=== PATIENT | male | born 1985 | race Caucasian/White ===

== ENCOUNTER 2019-06-05 05:09 | Emergency (ER) | payer OTHER ==
[2019-06-05] MEDS ORDERED: SODIUM CHLORIDE 0.9% 1,000 ML IV STA (05:57)
--- NOTE | 2019-06-05 06:38 | ED ---
Male Urogenital HPI - General Chief complaint: Urogenital Stated complaint: Testicular swelling Time Seen by Provider: 06/05/19 05:12 Source: patient, RN notes reviewed, old records reviewed Mode of arrival: ambulatory Limitations: no limitations - History of Present Illness Initial comments: This is a 34-year-old male the ER for evasive significant scrotal swelling. Patient unsure of when symptoms started when pain started as he is unable to have sensation in his groin and scrotal area secondary to cauda equina syndrome. Patient cauda equina syndrome from lumbosacral fractures from a traumatic injury. Just had a window. This was years ago. Patient just is decreased sensation in his groin area. Patient states he noted significant swelling of his scrotum today and presents ER for evaluation. MD Complaint: testicle pain, testicle swelling, dysuria -: unknown Location: right testicle, left testicle Radiation: none Severity: mild Quality: burning Consistency: constant Improves with: none Worsens with: urination, palpation Reports: denies other symptoms - Related Data Home Medications Medication Instructions Recorded Confirmed Baclofen 10 mg PO HS 06/05/19 06/05/19 Gabapentin [Neurontin] 300 mg PO TID 06/05/19 06/05/19 Tamsulosin HCl [Flomax] 0.4 mg PO 06/05/19 06/05/19 Vortioxetine Hydrobromide 10 mg PO 06/05/19 [Trintellix] Previous Rx's Medication Instructions Recorded Ciprofloxacin HCl [Cipro] 500 mg PO Q12HR #28 tablet 06/05/19 Allergies Allergy/AdvReac Type Severity Reaction Status Date / Time Iodinated Contrast- Oral and AdvReac Nausea & Verified 06/05/19 05:19 IV Dye Vomiting Review of Systems ROS Statement: Those systems with pertinent positive or pertinent negative responses have been documented in the HPI. ROS Other: All systems not noted in ROS Statement are negative. Past Medical History Additional Past Medical History / Comment(s): cauda equina syndrome related to burst fx in spine, crohns History of Any Multi-Drug Resistant Organisms: None Reported Past Surgical History: Orthopedic Surgery Additional Past Surgical History / Comment(s): fx penis sx Past Psychological History: Depression Smoking Status: Current every day smoker Past Alcohol Use History: Daily Past Drug Use History: Marijuana General Exam - General Exam Comments Initial Comments: Significant swelling bilateral scrotum with tenderness on palpation Limitations: no limitations General appearance: alert, in no apparent distress Head exam: Present: atraumatic, normocephalic, normal inspection Eye exam: Present: normal appearance, PERRL, EOMI. Absent: scleral icterus, conjunctival injection, periorbital swelling ENT exam: Present: normal exam, mucous membranes moist Neck exam: Present: normal inspection. Absent: tenderness, meningismus, lymphadenopathy Respiratory exam: Present: normal lung sounds bilaterally. Absent: respiratory distress, wheezes, rales, rhonchi, stridor Cardiovascular Exam: Present: regular rate, normal rhythm, normal heart sounds. Absent: systolic murmur, diastolic murmur, rubs, gallop, clicks GI/Abdominal exam: Present: soft, normal bowel sounds. Absent: distended, tenderness, guarding, rebound, rigid Extremities exam: Present: normal inspection, full ROM, normal capillary refill. Absent: tenderness, pedal edema, joint swelling, calf tenderness Back exam: Present: normal inspection Neurological exam: Present: alert, oriented X3, CN II-XII intact Psychiatric exam: Present: normal affect, normal mood Skin exam: Present: warm, dry, intact, normal color. Absent: rash Course Vital Signs 06/05/19 06/05/19 05:13 07:38 Temperature 97.7 F 97.1 F L Pulse Rate 99 83 Respiratory 20 18 Rate Blood Pressure 111/72 109/69 O2 Sat by Pulse 100 98 Oximetry Medical Decision Making - Medical Decision Making 34 male the ER for evaluation of painful swollen scrotum edematous scrotum and erythematous warm. Patient has epididymal orchitis on ultrasound. Will be treated with antibiotics and discharged home - Lab Data Lab Results 06/05/19 Range/Units 05:53 Urine Color Yellow Urine Appearance Cloudy (Clear) Urine pH 6.0 (5.0-8.0) Ur Specific [place] 1.017 (1.001-1.035) Urine Protein 1+ H (Negative) Urine Glucose (UA) Negative (Negative) Urine Ketones Negative (Negative) Urine Blood Moderate H (Negative) Urine Nitrite Positive (Negative) Urine Bilirubin Negative (Negative) Urine Urobilinogen <2.0 (<2.0) mg/dL Ur Leukocyte Esterase Large H (Negative) Urine RBC 10 H (0-5) /hpf Urine WBC >182 H (0-5) /hpf Urine WBC Clumps Many H (None) /hpf Ur Squamous Epith Cells 1 (0-4) /hpf Urine Bacteria Occasional H (None) /hpf Urine Mucus Rare H (None) /hpf - Radiology Data Radiology results: report reviewed (Ultrasound shows positive orchitis), image reviewed Disposition Clinical Impression: Epididymitis Disposition: HOME SELF-CARE Condition: Good Instructions (If sedation given, give patient instructions): Epididymo-Orchitis (ED) Prescriptions: Ciprofloxacin HCl [Cipro] 500 mg PO Q12HR #28 tablet Is patient prescribed a controlled substance at d/c from ED?: No Referrals: Pipo Collins DO [Primary Care Provider] - 1-2 days
--- NOTE | 2019-06-05 06:44 | US ---
EXAM: US Scrotum CLINICAL HISTORY: ITS.REASON US Reason: Pain TECHNIQUE: Real-time ultrasound of the scrotum with color Doppler and image documentation. COMPARISON: No relevant prior studies available. FINDINGS: Right testicle: No mass. No torsion. Left testicle: No mass. No torsion. Epididymides: Increased vascularity to the right epididymis. Scrotum: Bilateral hydroceles. IMPRESSION: Evidence of right-sided epididymitis. Bilateral hydroceles, mild.
[2019-06-05] MEDS ORDERED: CIPROFLOXACIN HCL 500 MG TAB PO STA (07:04)
[2019-06-05] MEDS ORDERED: AZITHROMYCIN 500 MG TAB PO STA (07:04)
[2019-06-05] MEDS ORDERED: cefTRIAXone 250 MG VIAL IM STA (07:05)
[2019-06-05 07:06] LABS: Appearance,Urine Cloudy (Clear); Bacteria,Urine Occasional /hpf; Bilirubin,Urine Negative (Negative); Blood,Urine Moderate (Negative); Color,Urine Yellow; Glucose,Urine (UA) Negative (Negative); Ketones,Urine Negative (Negative); Leukocyte Esterase,Urine Large (Negative); Mucus,Urine Rare /hpf; Nitrite,Urine Positive (Negative); Protein,Urine 1+ (Negative); RBC,Urine 10 /hpf (0-5); Specific Gravity,Urine 1.017 (1.001-1.035); Squamous Epithelial Cell,Urine 1 /hpf (0-4); Urobilinogen,Urine <2.0 mg/dL (<2.0); WBC,Urine >182 /hpf (0-5)
[2019-06-05 07:39] VITALS: BP 109/69; PULSE 83; RESP 18; TEMP 97.1
== END 2019-06-05 07:41 | disposition home or self-care (01) ==
LOC: EC 05:09
DX: N45.3 Epididymo-orchitis (principal); F32.9 Major depressive disorder, single episode, unspecified; F17.200 Nicotine dependence, unspecified, uncomplicated; Z91.041 Radiographic dye allergy status; Z79.899 Other long term (current) drug therapy
CPT/HCPCS: 81001; 87086; 93975; 76870; 99284; 96372; J0696; 87077; 87186

== ENCOUNTER 2019-11-10 06:06 | Observation (INO) | payer OTHER ==
[2019-11-10 06:11] VITALS: TEMP 97.7
--- NOTE | 2019-11-10 06:47 | ED ---
Male Urogenital HPI - General Chief complaint: Urogenital Stated complaint: male Time Seen by Provider: 11/10/19 06:13 Source: patient Mode of arrival: ambulatory Limitations: no limitations - History of Present Illness Initial comments: Patient is a 34-year-old male presenting to emergency Department with complaints of possible penile injury that happened approximately 2 hours prior to arrival. Patient states he is having intercourse and thinks he ruptured a blood vessel in his penis. Patient states he has a history of cauda equina and has some numbness in his pelvic region. Patient noticed swelling and bruising to his penis. He states this happened in the past and he had to have surgery. Patient states he wears a diaper secondary to urinary and fecal incontinence. Patient states he does not believe he has urinated since this injury. Patient has no other complaints at this time. Upon arrival to ER, his vital signs are stable. - Related Data Home Medications Medication Instructions Recorded Confirmed Baclofen 10 mg PO HS 06/05/19 06/05/19 Gabapentin [Neurontin] 300 mg PO TID 06/05/19 06/05/19 Tamsulosin HCl [Flomax] 0.4 mg PO 06/05/19 06/05/19 Vortioxetine Hydrobromide 10 mg PO 06/05/19 [Trintellix] Previous Rx's Medication Instructions Recorded Ciprofloxacin HCl [Cipro] 500 mg PO Q12HR #28 tablet 06/05/19 Allergies Allergy/AdvReac Type Severity Reaction Status Date / Time Iodinated Contrast Media AdvReac Nausea & Verified 06/05/19 05:19 [Iodinated Contrast- Oral Vomiting and IV Dye] Review of Systems ROS Statement: Those systems with pertinent positive or pertinent negative responses have been documented in the HPI. ROS Other: All systems not noted in ROS Statement are negative. Past Medical History Additional Past Medical History / Comment(s): cauda equina syndrome related to burst fx in spine, crohns History of Any Multi-Drug Resistant Organisms: None Reported Past Surgical History: Orthopedic Surgery Additional Past Surgical History / Comment(s): fx penis sx Past Psychological History: Depression Smoking Status: Current every day smoker Past Alcohol Use History: Daily Past Drug Use History: Marijuana General Exam - General Exam Comments Initial Comments: GENERAL: Well-appearing, well-nourished and in no acute distress. HEAD: Atraumatic, normocephalic. EYES: Pupils equal round and reactive to light, extraocular movements intact, sclera anicteric, conjunctiva are normal. ENT: Moist mucous membranes. NECK: Normal range of motion, supple without lymphadenopathy or JVD. LUNGS: Breath sounds clear to auscultation bilaterally and equal. No wheezes rales or rhonchi. HEART: Regular rate and rhythm without murmurs, rubs or gallops. ABDOMEN: Soft, nontender, normoactive bowel sounds. No guarding, no rebound. No masses appreciated. : Penis is flaccid, swollen with bruising on the left lateral aspect. No pain with palpation, however pt has chronic numbness to pelvis EXTREMITIES: Normal range of motion, no pitting or edema. No clubbing or cyanosis. NEUROLOGICAL: Normal speech, normal gait, with a cane PSYCH: Normal mood, normal affect. SKIN: Warm, Dry, normal turgor, no rashes or lesions noted. Limitations: no limitations Course Vital Signs 11/10/19 06:07 Temperature 97.7 F Pulse Rate 103 H Respiratory 18 Rate Blood Pressure 146/78 O2 Sat by Pulse 99 Oximetry - Reevaluation(s) Reevaluation #1: 11/10/19 07:[address] Samson, contacted conservation policy analyst urologist, Dr. Knight who will come see the pt. Pt was updated. Medical Decision Making - Medical Decision Making Patient is a 34-year-old male presenting with penile injury. Case discussed with Dr. Samson. On-call urologist, Dr. Granda was contacted who came to evaluate the patient. Patient will be taken to OR for exploration. Patient is in agreement with this plan of care. Disposition Clinical Impression: Penis injury Disposition: ADMITTED IP TO THIS [facility] Condition: Stable Is patient prescribed a controlled substance at d/c from ED?: No Referrals: Pipo Collins DO [Primary Care Provider] - 1-2 days Decision Date: 11/10/19 Decision Time: 08:42
--- NOTE | 2019-11-10 08:35 | P.GSHP ---
History of Present Illness H&P Date: 11/10/19 The patient is a pleasant 34-year-old gentleman who presented emergency room this morning because of marked penile swelling after intercourse. The patient has a cauda equina syndrome due to a fall a year and one half ago. He has no sensation below the abdomen. He stated that he noted after intercourse penis was markedly swollen and bruised on the right side. He had the same problem a year ago and had an exploration at [facility] where apparently there was a partial tear. He cannot feel so has no pain. Examination shows swelling on the right side. There is no problems urinating. There is no blood in the urine. There's no fever. - Genitourinary (Male) Genitourinary: Reports incontinence - Neurological Neurological: Reports ataxia, Reports numbness, Reports paralysis Past Medical History Additional Past Medical History / Comment(s): cauda equina syndrome related to burst fx in spine, crohns History of Any Multi-Drug Resistant Organisms: None Reported Past Surgical History: Orthopedic Surgery Additional Past Surgical History / Comment(s): fx penis sx Past Psychological History: Depression Smoking Status: Current every day smoker Past Alcohol Use History: Daily Past Drug Use History: Marijuana Medications and Allergies Home Medications Medication Instructions Recorded Confirmed Type Baclofen 10 mg PO HS 06/05/19 06/05/19 History Ciprofloxacin HCl [Cipro] 500 mg PO Q12HR #28 tablet 06/05/19 Rx Gabapentin [Neurontin] 300 mg PO TID 06/05/19 06/05/19 History Tamsulosin HCl [Flomax] 0.4 mg PO 06/05/19 06/05/19 History Vortioxetine Hydrobromide 10 mg PO 06/05/19 History [Trintellix] Allergies Allergy/AdvReac Type Severity Reaction Status Date / Time Iodinated Contrast Media AdvReac Nausea & Verified 06/05/19 05:19 [Iodinated Contrast- Oral Vomiting and IV Dye] Surgical - Exam Vital Signs Temp Pulse Resp BP Pulse Ox 97.7 F 103 H 18 146/78 99 11/10/19 06:07 11/10/19 06:07 11/10/19 06:07 11/10/19 06:07 11/10/19 06:07 - General well developed, well nourished, no distress - Eyes PERRL - ENT no hearing loss - Neck trachea midline - Respiratory normal expansion, normal respiratory effort - Cardiovascular Rhythm: regular - Abdomen Abdomen: soft, non tender - Genitourinary The penis is circumcised. There is ecchymosis and bruising on the right side. The penis is swollen. There is no blood at the urethral meatus. The testicles and scrotum are unremarkable. - Integumentary no rash, no growths - Neurologic Decreased coordination and sensation lower extremities uses a cane to walk. - Psychiatric oriented to time, oriented to person, oriented to place, speech is normal, memory intact Assessment and Plan Assessment: Impression: Possible corporal rupture of right corporal cavernosa post- intercourse. History of cauda equina syndrome. Recommendations: We discussed further diagnostic evaluation with including ultrasound. We discussed referral to [facility]. We discussed renal exploration versus nonoperative management. The plan is to do a penile exploration and repair any corporal tear. This will be done this morning. The risks and complications including infection bleeding pain curvature impotence of been outlined. The patient consents to this procedure.
[2019-11-10] MEDS ORDERED: NALOXONE 0.4 MG/ML 1 ML VIAL IV PRN (08:39)
[2019-11-10] MEDS ORDERED: LACTATED RINGERS 1,000 ML IV ONE ×2 (10:07→11:07)
[2019-11-10] MEDS ORDERED: ONDANSETRON 4 MG/2 ML VIAL IVP PRN (10:26)
[2019-11-10] MEDS ORDERED: MORPHINE SULFATE 2 MG/ML SYRINGE IV PRN (10:26)
[2019-11-10] MEDS ORDERED: LACTATED RINGERS 1,000 ML IV SCH (10:30)
[2019-11-10] MEDS ORDERED: PROPOFOL 10 MG/ML 20 ML VIAL IV ONE (10:42)
[2019-11-10] MEDS ORDERED: LIDOCAINE 1% INJ 10MG/ML (20 ML MDV) ONE ×2 (10:42)
[2019-11-10] MEDS ORDERED: MIDAZOLAM 2 MG/2 ML VIAL ONE (10:42)
[2019-11-10] MEDS ORDERED: BACITRACIN 500 UNIT/GM OINT 28.4 GM TUBE TOPICAL ONE (11:28)
--- NOTE | 2019-11-10 11:36 | P.OP ---
Date of Procedure: 11/10/19 Preoperative Diagnosis: Penile fracture Postoperative Diagnosis: Same Procedure(s) Performed: Penile exploration with repair of penile fracture Anesthesia: CHRISTINA Surgeon: Tate Granda Pathology: none sent Condition: stable Disposition: PACU Indications for Procedure: The patient is 34. He has cauda equina syndrome due to a back fracture urine half ago. He was having intercourse today. He slipped out and his penis hit his 's pubis a. He developed swelling of the penis and came to the emergency room. On evaluation he has a markedly ecchymotic left side of his penis consistent with penile fracture. He comes for exploration. he has had a previous penile fracture repaired a year ago. Description of Procedure: The patient is brought to the operating suite. He's given general anesthesia. He is prepped and draped sterilely. A circumcising incision around the penis is made. I degloved the penis. On the left lateral distal aspect of the penis there is marked ecchymosis. I dissect through the ecchymosis and indeed there is a fracture in the corpora cavernosa on the left side. 4 stitches are placed to repair the fracture. I inspect the rest the penis is no other fracture. I closed the incision with 2 running 3-0 chromic simple. The patient wound is dr essed is awake and returned recovery room good condition Impression: penile fracture repaired. Recommendations: The patient will be discharged home later today in follow-up in the office in one week.
[2019-11-10 13:30] VITALS: RESP 12
[2019-11-10 15:49] VITALS: BP 116/68; PULSE 79
== END 2019-11-10 17:11 | disposition home or self-care (01) ==
LOC: EC 06:06 → 4SSUR 08:56
PROVIDERS: ADMIT Urology; ATTEND Urology
DX: S39.840A Fracture of corpus cavernosum penis, initial encounter (principal); G83.4 Cauda equina syndrome; K50.90 Crohn's disease, unspecified, without complications; F17.200 Nicotine dependence, unspecified, uncomplicated; Z86.59 Personal history of other mental and behavioral disorders; Z79.899 Other long term (current) drug therapy; Z79.2 Long term (current) use of antibiotics
CPT/HCPCS: 99284; 55899; G0378; J2250; J2001; J2704

== ENCOUNTER → 2022-02-06 | Outpatient (CLI) | payer MEDICARE, OTHER ==
--- NOTE | 2022-02-06 12:03 | US ---
EXAMINATION TYPE: US kidneys/renal and bladder DATE OF EXAM: 02/06/2022 COMPARISON: NONE CLINICAL HISTORY: N31.9 NEUROMUSCULAR DYSFUNCTION BLADDER. neurogenic bladder EXAM MEASUREMENTS: Right Kidney: 9.1 x 4.1 x 4.2 cm Left Kidney: 10.4 x 6.0 x 4.9 cm Right Kidney: dilated renal pelvis Left Kidney: no evidence of hydronephrosis Bladder: not fully distended, thickened wall = 0.8cm Bilateral Jets seen: no Bladder is poorly distended with moderate to severe wall thickening fairly concentric in appearance. There is no evidence for hydronephrosis at this point in time. No nephrolithiasis is seen. No alejandro s are identified on images saved. IMPRESSION: Poorly distended bladder with moderate to severe wall thickening is consistent with repor beltran history of neurogenic bladder.
== END | disposition home or self-care (01) ==
LOC: RADUSWWP 11:17
PROVIDERS: ATTEND Urology
DX: N32.89 Other specified disorders of bladder (principal)
CPT/HCPCS: 76770